=== PATIENT | female | born 1965 | race African-American/Black ===

== ENCOUNTER 2017-07-29 13:42 | Day surgery (SDC) | payer BC ==
[2017-07-27 15:26] VITALS: BMI 28.3
[2017-07-29] MEDS ORDERED: MIDAZOLAM HCL 2 MG/2 ML SINGLE DOSE VIAL ONE (15:36)
[2017-07-29] MEDS ORDERED: PROPOFOL 20 ML ONE ×3 (15:46)
[2017-07-29] MEDS ORDERED: LIDOCAINE HCL/PF 2% SDV 5ML VIAL ONE (15:46)
[2017-07-29] MEDS ORDERED: SUCCINYLCHOLINE CHLORIDE 200 MG/10 ML VIAL ONE (15:46)
[2017-07-29] MEDS ORDERED: LIDOCAINE HCL 2% (20ML MULTI-DOSE VIAL) NR ONE (15:52)
[2017-07-29] MEDS ORDERED: ONDANSETRON 4 MG/2 ML VIAL IVPUSH PRN (15:57)
[2017-07-29] MEDS ORDERED: oxyCODONE HCL 5 MG TABLET PO PRN (15:57)
[2017-07-29] MEDS ORDERED: LACTATED RINGERS SOLUTION 1,000 ML IV SCH (16:00)
[2017-07-29] MEDS ORDERED: ONDANSETRON 4 MG/2 ML VIAL ONE (17:27)
[2017-07-29 18:02] VITALS: TEMP 97.5
[2017-07-29] MEDS ORDERED: oxyCODONE HCL 5 MG TABLET ONE (18:13)
[2017-07-29 18:30] VITALS: BP 139/81; PULSE 67
--- NOTE | 2017-07-31 08:12 | OP ---
DATE OF OPERATION: 07/29/2017 PREOPERATIVE DIAGNOSES: 1. Right carpal tunnel syndrome. 2. Right dorsal hand mass. POSTOPERATIVE DIAGNOSES: 1. Right carpal tunnel syndrome. 2. Right dorsal hand mass. OPERATIVE PROCEDURE: 1. Right carpal tunnel release. 2. Right dorsal hand mass excision. SURGEON: Andrew Randolph MD ANESTHESIA: Local with sedation. COMPLICATIONS: None. ESTIMATED BLOOD LOSS: Minimal. INDICATION FOR PROCEDURE: The patient is a 52-year-old female with the above finding indicated for operative treatment. Risks, benefits, and alternatives were discussed with the patient at length. Proper informed consent was obtained. PROCEDURE: After proper identification of patient, correct operative site, patient brought to the operating room, placed supine on the operating table with all prominences well padded. Sedation was given by the anesthesiologist. Local anesthesia was given with 2% lidocaine. Right upper extremity was prepped and draped in the usual sterile fashion. A well-padded tourniquet was placed over the sterile prep, Esmarch bandage used to exsanguinate the right upper extremity. Tourniquet was inflated to 250 mmHg. The patient's dorsal hand mass was ellipsed out in a longitudinal fashion in order to achieve apposition of wound edges. The mass was excised in whole, including the skin and subcutaneous tissues, taking care to protect the neurovascular structures. The flaps were then elevated. The wound edges were then elevated with full-thickness flaps and reapproximated and repaired with a 5-0 nylon suture. This provided complete excision of the mass. This was sent for pathological evaluation. Second incision was made over the carpal canal. The incision was taken sharply through the skin with blunt and sharp dissection to subcutaneous tissues. Palmar fascia was divided longitudinally. Transcarpal ligament along with the distal 4 cm of antebrachial fascia was divided longitudinally under direct visualization with loupe magnification. This provided complete release of median nerve at the wrist. Wound was irrigated with saline and repaired with 5-0 nylon suture. Patient was brought to the recovery room in stable condition. She tolerated the procedure well. ANDREW RANDOLPH M.D. [id number]
--- NOTE | 2017-08-10 11:35 | PATH ---
Surgical Pathology Report Patient Name: MAX TOURE Med. Rec. #: [id number] /Age/Gender: 1965 (Age: 52) / F Account: [id number] Location: [facility] AMBULATORY Taken: 07/29/2017 Received: 07/29/2017 Reported: 08/10/2017 Physicians: Andrew Costa M.D. Specimen(s) Received RIGHT HAND MASS Clinical History Right carpal tunnel, right hand mass Final Diagnosis HAND, RIGHT, MASS, EXCISION: DERMATOFIBROMA. (SEE NOTE) Note: Immunohistochemical studies performed at [place], [place] ([id number]) demonstrate patchy positivity in the lesional cells for factor XIIIA; CD34 immunostain shows background non-specific staining, while S100 immunostain is negative. These findings support the diagnosis. Electronically Signed Destiny Wu M.D. Gross Description Received in formalin labeled "right hand mass," is a 1.7 x 0.6 cm menon, elliptical, unoriented portion of skin excised to depth of 0.2 cm. The epidermal surface displays a 0.7 x 0.6 cm brown, ovoid, pigmented lesion abutting the radial margin. The specimen is inked green, serially sectioned and entirely submitted in 2 cassettes as follows: 1-undesignated tips; 2-central portion of specimen with lesion. 07/30/201707/30/2017
== END 2017-07-29 19:01 | disposition home or self-care (01) ==
LOC: FASU 13:42
PROVIDERS: ATTEND Orthopaedic Surgery Hand Surgery
PROC: 0HBFXZX Excision of Right Hand Skin, External Approach, Diagnostic (ICD-10-PCS; 2017-07-29)
PROC: 01N50ZZ Release Median Nerve, Open Approach (ICD-10-PCS; principal; 2017-07-29 16:37)
DX: G56.01 Carpal tunnel syndrome, right upper limb (principal); D23.61 Other benign neoplasm of skin of right upper limb, including shoulder
CPT/HCPCS: 82962; 88305-TC; 94760